=== PATIENT | female | born 2000 | race Caucasian/White ===

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

== ENCOUNTER → 2021-11-23 | Outpatient (CLI) | payer OTHER ==
[2021-11-23 18:49] LABS: HCT 39.1 % (37.2-46.3); HGB 12.4 g/dL (12.0-15.0); MCH 28.4 pg (27.0-32.0); MCHC 31.7 g/dL (32.0-37.0); MCV 89.5 fL (80.0-97.0); Mean Platelet Volume 12.5 fL (9.5-12.2); NRBC Per 100 WBC 0 /100 WBCS (0.0-0.0); Platelet Count 265 X 10*3/uL (140-440); RBC 4.37 X 10*6/uL (4.10-5.20); RDW 12.6 % (11.5-14.5)
[2021-11-23 20:15] LABS: % Iron Saturation 10.27 (12.00-45.00); Anion Gap 14.3 mmol/L (10.00-18.00); Blood Urea Nitrogen 7.3 mg/dL (9.0-27.0); Carbon Dioxide 19.1 mmol/L (20.0-27.5); Potassium 3.9 mmol/L (3.5-5.5); T4, Free (Free Thyroxine) 1.08 ng/dL (0.830-1.430)
[2021-11-28 14:23] LABS: Nicotinamide 17 ng/mL; Nicotinic Acid None Detected; Nicotinuric Acid None Detected
== END | disposition home or self-care (01) ==
LOC: LABWHC1 10:18
PROVIDERS: ATTEND Internal Medicine
DX: R53.82 Chronic fatigue, unspecified (principal)
CPT/HCPCS: 36415; 80051; 82306; 83540; 83550; 84439; 84443; 84481; 84520; 84591; 85027